=== PATIENT | female | born 1960 | race Hispanic/Latino ===

== ENCOUNTER 2017-04-13 05:45 | Day surgery (SDC) | payer OTHER ==
[2017-04-13] MEDS ORDERED: WATER FOR IRRIG STERILE IR ONE (07:24)
[2017-04-13] MEDS ORDERED: DIPRIVAN 10 MG/ML IV ONE ×2 (07:34)
[2017-04-13] MEDS ORDERED: XYLOCAINE 2% INFILTRATI ONE (07:34)
--- NOTE | 2017-04-13 07:44 | Anesthesia Consultation ---
Anesthesia Consult and Med Hx Date of service: 04/13/17 - Airway Anesthetic Teeth Evaluation: Poor, Dentures ROM Head & Neck: Adequate Mental/Hyoid Distance: Adequate Mallampati Class: Class II Intubation Access Assessment: Probably Good - Pulmonary Exam CTA: Yes - Cardiac Exam Cardiac Exam: RRR - Pre-Operative Health Status ASA Pre-Surgery Classification: ASA3 Proposed Anesthetic Plan: MAC - Pre-Anesthesia Comment Pre-Anesthesia Comments: Full upper plate - Pulmonary Hx Smoking: No (Former) - Central Nervous System Hx Seizures: Yes (depakote) - Gastrointestinal Hx Gastroesophageal Reflux Disease: Yes - Other Systems Hx Obesity: Yes
--- NOTE | 2017-04-13 07:45 | Anesthesia Day of Surgery ---
Anesthesia Day of Surgery - Day of Surgery Patient Examined: Yes Patient H&P Reviewed: Yes Patient is NPO: Yes
[2017-04-13] MEDS ORDERED: PEPCID IV ONE (07:53)
[2017-04-13] MEDS ORDERED: PEPCID IV NR (08:00)
[2017-04-13] MEDS ORDERED: NACL 0.9% 1000 ML 1,000 ML IV SCH (08:00)
[2017-04-13] MEDS ORDERED: XYLOCAINE MPF 2% ONE (08:57)
--- NOTE | 2017-04-13 09:02 | Short Stay Summary ---
Short Stay Documentation - Allergies and Medications Current Medications: Allergies No Known Allergies Allergy (Verified 04/13/17 07:51) Home Medications Medication Instructions Recorded Confirmed Last Taken Type Depakote 500 mg PO TID 04/13/17 04/13/17 04/12/17 History Active Medications Famotidine (Pepcid) 20 mg IV PREOP NR Stop: 04/13/17 15:00 Sodium Chloride (Nacl 0.9% 1000 Ml) 1,000 mls @ 50 mls/hr IV DIRECT ROSEMARY Last Admin: 04/13/17 08:13 Dose: 50 mls/hr - Brief post op/procedure progress note Date of procedure: 04/13/17 Pre-op diagnosis: Colon cancer screening Post-op diagnosis: same (1. Internal hemorrhoids 2. Poor prep) Procedure: Colonoscopy Anesthesia: MAC Findings: as above Pathology: none Condition: stable - Disposition Condition at discharge: Stable Disposition: DC-01 TO HOME OR SELFCARE Short Stay Discharge Plan Activity: no restrictions Weight Bearing Status: Full Weight Bearing Diet: regular, low salt
--- NOTE | 2017-04-13 09:15 | Post Anesthesia Evaluation ---
- Post Anesthesia Evaluation Patient Participated: Yes Airway Patent: Yes Stable Respiratory Function: Yes Temp > 96.8F: Yes Pain Manageable: Yes Adequeate Hydration: Yes Anesthesia Complications: No
[2017-04-13 09:20] VITALS: BP 106/69
== END 2017-04-13 05:46 | disposition home or self-care (01) ==
LOC: GIO 05:45
PROVIDERS: ATTEND Internal Medicine Gastroenterology
DX: Z12.11 Encounter for screening for malignant neoplasm of colon (principal); K64.0 First degree hemorrhoids; K57.30 Diverticulosis of large intestine without perforation or abscess without bleeding; K21.9 Gastro-esophageal reflux disease without esophagitis; G40.909 Epilepsy, unspecified, not intractable, without status epilepticus; M19.90 Unspecified osteoarthritis, unspecified site; E66.9 Obesity, unspecified; Z68.43 Body mass index [BMI] 50.0-59.9, adult; Z90.49 Acquired absence of other specified parts of digestive tract; Z98.890 Other specified postprocedural states; Z87.891 Personal history of nicotine dependence; Z79.899 Other long term (current) drug therapy
CPT/HCPCS: G0121; J2704; J7030